=== PATIENT | female | born 2000 | race Caucasian/White ===

== ENCOUNTER 2019-04-01 07:46 | Day surgery (SDC) | payer OTHER ==
[2019-03-29 15:19] VITALS: BMI 25.8
[2019-04-01] MEDS ORDERED: Heparin 5,000 UNITS/ML VIAL ONE (08:27)
[2019-04-01] MEDS ORDERED: Midazolam HCl 2 mg/2 ml Vial ONE ×2 (09:41→10:11)
[2019-04-01] MEDS ORDERED: Gentamicin 80 MG/2 ML VIAL ONE (10:01)
[2019-04-01] MEDS ORDERED: Bupivacaine/Epinephrine 0.25% 30 ML VIAL ONE ×2 (10:01→10:24)
[2019-04-01] MEDS ORDERED: Sodium Chloride 0.9% 20 ML ONE (10:02)
[2019-04-01] MEDS ORDERED: Fentanyl 100 MCG/2 ML VIAL ONE ×2 (10:11→13:49)
[2019-04-01] MEDS ORDERED: Ketamine 50 MG/ML (10ML VIAL) ONE (10:11)
[2019-04-01] MEDS ORDERED: Lidocaine 1% PF 5 ML VIAL ONE (13:20)
[2019-04-01] MEDS ORDERED: PHENYLEPHRINE-NS 100 MCG/ML 10 ML SYRINGE ONE (13:20)
[2019-04-01] MEDS ORDERED: PROPOFOL 200 MG/20 ML VIAL ONE (13:20)
[2019-04-01] MEDS ORDERED: Ondansetron PF 4 MG/2 ML Vial ONE (13:20)
[2019-04-01] MEDS ORDERED: Morphine 2 MG/ML SYRINGE ONE (15:19)
[2019-04-01] MEDS ORDERED: HYDROcodone/Acetaminophen 5/325 mg Tablet ONE (15:24)
[2019-04-01] MEDS ORDERED: Ondansetron ODT 4 MG TAB ONE (16:58)
--- NOTE | 2019-04-03 16:38 | OP ---
DATE OF PROCEDURE: 04/01/2019 PREOPERATIVE DIAGNOSIS: Macromastia. POSTOPERATIVE DIAGNOSIS: Macromastia. PROCEDURE PERFORMED: Bilateral breast reduction ([id number]). DESCRIPTION OF PROCEDURE: Following the induction of adequate anesthesia, the patient was prepped and draped in the usual sterile fashion in supine position. Attention was first turned to the left breast. Modified Xavier pattern breast markings were incised. The nipple was circumcised around a 42 mm nipple Sizer. Inferiorly, thin skin flaps were raised medially, laterally, and superiorly. The pedicle was then sculpted to excise tissue and protect viability and sensibility. In order to satisfy the insurance requirements at least 350 g of tissue had to be excised. I had excised approximately 200 g on the left breast before the pedicle was approximately 2 cm in thickness. The tissue right behind the breast was extremely dense and solid breast parenchyma. At that point, I knew that the nipple pedicle was nonviable, so the nipple was harvested as a full-thickness skin graft. The remainder of the resection was done to excise approximately 380 g of tissue. The pedicle or the pedicle mound was then secured superiorly on the chest wall using 2 interrupted 2-0 PDS sutures. The inverted T was closed with interrupted 3-0 PDS suture and running 3-0 Monocryl suture. The nipple was then set using interrupted running 3-0 Prolene suture. All incisions were dressed with Dermabond. Similar procedure was done on the other side except for the fact that the procedure started with harvesting of the nipple as a full-thickness nipple graft. All mina were copiously irrigated and inspected for meticulous hemostasis prior to closure. The patient tolerated the procedure well. Job ID: [id number]
== END 2019-04-01 18:04 | disposition home or self-care (01) ==
LOC: SDC 07:46
PROVIDERS: ATTEND Plastic Surgery
PROC: 0HBV0ZZ Excision of Bilateral Breast, Open Approach (ICD-10-PCS; principal; 2019-04-01)
PROC: 0HQX0ZZ Repair Left Nipple, Open Approach (ICD-10-PCS; principal; 2019-04-01)
DX: N62 Hypertrophy of breast (principal); Z79.899 Other long term (current) drug therapy
CPT/HCPCS: 88305; J0690; J1580; J1644; J2001; J2250; J2270; J2405; J2704; J3010; J3370; J3490; Q0162